=== PATIENT | female | born 1935 | race Caucasian/White ===

== ENCOUNTER 2022-04-23 10:30 | Inpatient (IN) | payer OTHER ==
[~2022-04-23] VITALS: Ht 172.7 cm; Wt 85.7 kg
[2022-04-23 10:30] VITALS: BP_SYST 135
--- NOTE | 2022-04-23 10:30 | NUR ---
PATIENT BIBA C/O SOB COUGHING, PLACE IN ROOM 1 ON DESIGN TECHNICIAN, SEEN BY EDP WITH ORDER PORTIA OUT.
--- NOTE | 2022-04-23 10:30 | NUR ---
BROUGHT IN BY [facility], PLACED IN BED #1 AND TRIAGED.REPORT GIVEN TO JUSTIN
[2022-04-23] MEDS ORDERED: methylPREDNISolone SOD SUCC/PF 62.5 MG/ML VIAL IVP ONE (10:45)
[2022-04-23] MEDS ORDERED: NACL 0.9% 1,000 ML IV ONE (10:45)
--- NOTE | 2022-04-23 11:03 | NUR ---
x-ray in progress.
[2022-04-23 11:09] LABS: BASOPHILS # (AUTO) 0.1 K/uL (0.0-0.2); BASOPHILS % (AUTO) 0.5 % (0.0-2.0); EOSINOPHILS % (AUTO) 0.2 % (0.0-4.0); HEMATOCRIT 34.4 % (36-48); HEMOGLOBIN 10.6 g/dL (12.0-16.0); LYMPHOCYTES # (AUTO) 1.2 K/uL (1.0-5.5); LYMPHOCYTES % (AUTO) 9.6 % (20.5-51.5); MEAN CORPUSCULAR HEMOGLOBIN 23 pg (27-31); MEAN CORPUSCULAR HGB CONC 31 % (32-36); MEAN CORPUSCULAR VOLUME 76 fL (79.0-98.0); MONOCYTES # (AUTO) 1.6 K/uL (0.0-1.0); MONOCYTES % (AUTO) 12.4 % (1.7-9.3); NEUTROPHILS # (AUTO) 9.7 K/uL (1.8-7.7); NEUTROPHILS % (AUTO) 77.3 % (40.0-70.0); PLATELET COUNT (AUTO) 225 K/uL (130-430); RED BLOOD CELL COUNT(AUTO) 4.53 MIL/uL (4.2-6.2); WHITE BLOOD COUNT (AUTO) 12.5 K/uL (4.8-10.8)
[2022-04-23 11:26] LABS: ANION GAP 8 (5-15); CALCIUM 8.9 mg/dL (8.4-11.0); CHLORIDE 101 mmol/L (98-107); CREATININE 0.91 mg/dL (0.55-1.30); GLUCOSE 117 mg/dL (70-99); UREA NITROGEN, BLOOD 14 mg/dL (8-21)
[2022-04-23] MEDS ORDERED: PIPERACILLIN/TAZO 3.375 GM in NS 50 ML IV ONE (11:30)
[2022-04-23] MEDS ORDERED: IPRATROPIUM BROM 0.5 MG/2.5 ML VIAL.NEB (ATROVENT) INH ONE (11:30)
[2022-04-23] MEDS ORDERED: ALBUTEROL SULFATE 0.083% 2.5 MG/3 ML VIAL.NEB INH ONE (11:30)
[2022-04-23 11:31] LABS: ALANINE AMINOTRANSFERASE 29 U/L (12-78); ALBUMIN 2.7 g/dL (3.4-4.8); ASPARTATE AMINOTRANSFERASE 24 U/L (10-37); TOTAL BILIRUBIN 0.4 mg/dL (0.0-1.0)
[2022-04-23] MEDS ORDERED: PIPERACILLIN/TAZOBACTAM 3.375 GM/VIAL (ZOSYN) IV ONE (11:37)
[2022-04-23] MEDS ORDERED: ONDANSETRON HCL 4 MG/2 ML VIAL IVP ONE (13:30)
--- NOTE | 2022-04-23 14:24 | NUR ---
NOTIFIED ED ADMITTING REGARDING DR. FLOYD' REQUEST FOR ADMISSION/TRANSFER. PER DR. FLOYD PT IS STABLE FOR TRANSFER. WILL CONTACT EDUCATION DIRECTOR REGARDING THIS MATTER. PER FACESHEET: NIKA PARSON -NIKA
[2022-04-23] MEDS ORDERED: ACETAMINOPHEN 325 MG TABLET PO PRN ×2 (14:45→15:30)
[2022-04-23] MEDS ORDERED: INSULIN LISPRO SLIDING SCALE 100 UNITS/ML, 3 ML VIAL (humaLOG) SUBCUT PRN (14:45)
[2022-04-23] MEDS ORDERED: DEXTROSE 50% JECT 50 ML DISP.SYRIN IVP PRN (14:45)
[2022-04-23] MEDS ORDERED: ONDANSETRON HCL 4 MG/2 ML VIAL IVP PRN (14:45)
[2022-04-23] MEDS ORDERED: DOCUSATE SODIUM 100 MG CAPSULE PO PRN (14:45)
[2022-04-23] MEDS ORDERED: MAGNESIUM SULFATE 50 ML IV PRN (14:45)
[2022-04-23] MEDS ORDERED: ALBUTEROL SULFATE 0.083% 2.5 MG/3 ML VIAL.NEB INH PRN (14:45)
[2022-04-23] MEDS ORDERED: MUPIROCIN 2% TOPICAL OINTMENT 22 GM NS PRN (14:45)
[2022-04-23] MEDS ORDERED: MORPHINE 2 MG/ML INJ. SYRINGE IVP PRN ×2 (14:45)
--- NOTE | 2022-04-23 15:20 | NUR ---
ADMISSION NOTE; Received patient from ER via gurney. Patient admitted with diagnosis of PNA and acute resp. failure. Patient is awake, alert, oriented X 4. Patient oriented to hospital room, call light, toileting, pain management and safety-teach back done. Patient informed that Blanka will be her nurse and that their room number is 13B. Personal belongings checked and Belongings List documented. Call light within reach.
[2022-04-23] MEDS ORDERED: DOCU-156 PO (16:05)
[2022-04-23] MEDS ORDERED: DONE5TAB33 PO (16:05)
[2022-04-23] MEDS ORDERED: ATOR10TA68 PO (16:05)
[2022-04-23] MEDS ORDERED: APIX5TAB PO (16:05)
[2022-04-23] MEDS ORDERED: ASPI-1393 PO (16:05)
[2022-04-23] MEDS ORDERED: MELA10TA3 PO (16:05)
[2022-04-23] MEDS ORDERED: NEU300 PO (16:05)
[2022-04-23] MEDS ORDERED: HYDR-3917 PO (16:05)
[2022-04-23] MEDS ORDERED: CALC-17 PO (16:05)
[2022-04-23] MEDS ORDERED: OMEP20CA15 PO (16:05)
[2022-04-23] MEDS ORDERED: VITD2000 PO (16:05)
[2022-04-23] MEDS ORDERED: MEMA5TAB42 PO (16:05)
[2022-04-23] MEDS ORDERED: FURO80TA3 PO (16:05)
[2022-04-23] MEDS ORDERED: VENL75CA56 PO (16:05)
[2022-04-23] MEDS ORDERED: ACET-2634 PO (16:06)
[2022-04-23] MEDS ORDERED: FAMO1TAB30 PO (16:06)
[2022-04-23] MEDS ORDERED: ALBU2.5V7 INH (16:06)
[2022-04-23] MEDS ORDERED: CRAN500T4 PO (16:06)
[2022-04-23] MEDS ORDERED: L. A1CAP14 PO (16:06)
[2022-04-23] MEDS ORDERED: POTA-197 PO (16:06)
[2022-04-23] MEDS ORDERED: LORA-258 PO (16:06)
--- NOTE | 2022-04-23 16:06 | NUR ---
Medication reconciliation completed with information provided by [facility]. Any prior medication reconciliation on file was reviewed and corrected.
--- NOTE | 2022-04-23 16:07 | NUR ---
Admit bed requested Patient will be admitted to care of . Admitted to TELE unit. Diagnosis YES Inpatient (Yes or No) YES Observation (Yes or No) NO Orientation concerns or request close to nursing station (Yes or No) NO Covid Status NEGATIVE On vent or bipap NO Isolation requirements NO Needs a sitter NO From Home (Yes or if No enter name of facility) HOME Requires Dialysis (Yes or No) NO Med Rec Completed (Yes of No) YES
--- NOTE | 2022-04-23 16:50 | NUR ---
REPORT GIVEN TO NICOLE ALONSO
--- NOTE | 2022-04-23 16:50 | NUR ---
Patient will be admitted to [facility]. Admitted to unit. Will go to room . Belongings list completed. Complete and up to date summary report printed. SBAR report to be given at bedside with opportunity for questions.
[2022-04-23 17:20] VITALS: BP_SYST 151
--- NOTE | 2022-04-23 19:11 | NUR ---
Closing Notes; Closing Notes; Patient laying in bed, resting while watching TV. A/O x4, Swiss speaking. Patient Breathing even and labored on 4LPM. No pain, no distress, with SOB. Patient is on a mechanical soft diet. Patient has RH 22g. Patient is bed bound and needs assistants. Bed is locked in lowest position. Call light within reach, all needs met, will endorse to cnc machinist 2nd shift nurse.
[2022-04-23] MEDS: HEPARIN SODIUM,PORCINE 5,000 UNITS/ML VIAL SUBCUT SCH (21:00)
[2022-04-24] VITALS (7 sets, daily range): BP systolic 129–147
[2022-04-24 07:16] LABS: BASOPHILS % (AUTO) 0.1 % (0.0-2.0); HEMATOCRIT 33.8 % (36-48); HEMOGLOBIN 10.5 g/dL (12.0-16.0); LYMPHOCYTES # (AUTO) 0.6 K/uL (1.0-5.5); LYMPHOCYTES % (AUTO) 5.4 % (20.5-51.5); MEAN CORPUSCULAR HEMOGLOBIN 24 pg (27-31); MEAN CORPUSCULAR HGB CONC 31 % (32-36); MEAN CORPUSCULAR VOLUME 77 fL (79.0-98.0); MONOCYTES # (AUTO) 0.8 K/uL (0.0-1.0); MONOCYTES % (AUTO) 7.6 % (1.7-9.3); NEUTROPHILS # (AUTO) 9.3 K/uL (1.8-7.7); NEUTROPHILS % (AUTO) 86.9 % (40.0-70.0); PLATELET COUNT (AUTO) 223 K/uL (130-430); RED BLOOD CELL COUNT(AUTO) 4.41 MIL/uL (4.2-6.2); RED CELL DISTRIBUTION WIDTH 19.8 % (9.0-15.0); WHITE BLOOD COUNT (AUTO) 10.6 K/uL (4.8-10.8)
--- NOTE | 2022-04-24 07:16 | NUR ---
NOTES PT IS RESTING
[2022-04-24 08:36] LABS: ANION GAP 5 (5-15); CALCIUM 9.4 mg/dL (8.4-11.0); CHLORIDE 103 mmol/L (98-107); CREATININE 0.98 mg/dL (0.55-1.30); GLUCOSE 117 mg/dL (70-99); UREA NITROGEN, BLOOD 20 mg/dL (8-21)
[2022-04-24] MEDS: HEPARIN SODIUM,PORCINE 5,000 UNITS/ML VIAL SUBCUT SCH ×2 (09:51→21:25)
[2022-04-24] MEDS: PIPERACILLIN/TAZO 3.375/DEX-IS 50 ML IV SCH ×3 (12:00→23:29)
--- NOTE | 2022-04-24 12:30 | NUR ---
Social Service re: social and political studies professor referral Met with patient and son at bedside. I completed an initial sociale service assessment with the patient at bedside. The patient is an 86-year-old female who is alert and oriented. I completed an initial assessment with the patient and son at bedside. During my assessment, the patient states she resides at [facility] in [place]. The patient requires routine assistance with her ADLs and daily care. The patient does have a Power of Independent Freight Agent, in which her son, Rodney Palacio ([phone]) holds the POA. Per patient, she does not have a PCP. Per patient and son, the discharge plan is to return back home to the [facility]. The patient states there are no anticipated discharge needs in place. The patient and son are in agreement to the discharge plan. At time of discharge, the son states the family will arrange transport privately with [facility]. [facility]: [phone] [facility]: [phone]
--- NOTE | 2022-04-24 16:31 | NUR ---
PATIENT IS A PLEASANT 86 YRS OLD, WHO DENIES ANY PAIN, HER COMPLAINTS TODAY IS FREQUENT COUGHS. MD NOTIFIED AND ORDERS OBTAINED FOR COUGH. PATIENT CONTINUES ON IV ANTIBIOTICS, NO C/O PAIN . SAFETY PRECAUTIONS MAINTAINED THIS SHIFT. CONTINUE WITH POC.
--- NOTE | 2022-04-24 20:31 | NUR ---
RECEIVED PT LYING IN BED, NO DISTRESS NOTED, DENIES PAIN. AAOX3, O2 SAT 97% ON 2L NC. NON PRODUCTIVE COUGH. LUNG SOUNDS WITH MINIMAL WHEEZING. IV TO RT SHOULDER SITE CDI. WEAK PULSES TO BLE.
[2022-04-24] MEDS ORDERED: FUROSEMIDE 80 MG TABLET PO SCH (21:00)
[2022-04-24] MEDS ORDERED: guaiFENesin ER 600 MG TAB PO SCH (21:00)
[2022-04-24] MEDS: GABAPENTIN 300 MG CAPSULE PO SCH (21:24)
[2022-04-24] MEDS: FUROSEMIDE 40 MG/4 ML VIAL IVP SCH (21:29)
[2022-04-25 01:10] VITALS: BP_SYST 139
[2022-04-25] MEDS: PIPERACILLIN/TAZO 3.375/DEX-IS 50 ML IV SCH ×3 (05:50→17:41)
[2022-04-25 07:45] VITALS: BP_SYST 103
[2022-04-25 07:46] LABS: BASOPHILS % (AUTO) 0.5 % (0.0-2.0); EOSINOPHILS % (AUTO) 0.5 % (0.0-4.0); HEMATOCRIT 32.1 % (36-48); HEMOGLOBIN 10.1 g/dL (12.0-16.0); LYMPHOCYTES # (AUTO) 1.3 K/uL (1.0-5.5); LYMPHOCYTES % (AUTO) 13.5 % (20.5-51.5); MEAN CORPUSCULAR HEMOGLOBIN 24 pg (27-31); MEAN CORPUSCULAR HGB CONC 32 % (32-36); MEAN CORPUSCULAR VOLUME 76 fL (79.0-98.0); MONOCYTES # (AUTO) 1.1 K/uL (0.0-1.0); MONOCYTES % (AUTO) 11.2 % (1.7-9.3); NEUTROPHILS % (AUTO) 74.3 % (40.0-70.0); PLATELET COUNT (AUTO) 244 K/uL (130-430); RED BLOOD CELL COUNT(AUTO) 4.21 MIL/uL (4.2-6.2); WHITE BLOOD COUNT (AUTO) 9.4 K/uL (4.8-10.8)
[2022-04-25 07:52] LABS: ANION GAP 7 (5-15); CALCIUM 8.5 mg/dL (8.4-11.0); CHLORIDE 103 mmol/L (98-107); GLUCOSE 88 mg/dL (70-99); UREA NITROGEN, BLOOD 20 mg/dL (8-21)
--- NOTE | 2022-04-25 07:59 | NUR ---
Report received from gas main fitter RN for continuity of care. Patient in stable condition. No active distress noted. Vitals stable.
[2022-04-25] MEDS: ATORVASTATIN 10 MG TABLET PO SCH (08:24)
[2022-04-25] MEDS: FUROSEMIDE 40 MG/4 ML VIAL IVP SCH ×2 (08:24→22:35)
[2022-04-25] MEDS: ASPIRIN 81 MG TABLET(ECOTRIN) PO SCH (08:24)
[2022-04-25] MEDS: HEPARIN SODIUM,PORCINE 5,000 UNITS/ML VIAL SUBCUT SCH ×2 (08:25→22:33)
[2022-04-25 12:09] VITALS: BP_SYST 125
--- NOTE | 2022-04-25 15:07 | NUR ---
RN DID NOT CLEAR PATIENT FOR PT TREATMENT PATIENT IS HAVING DIFFICULTY BREATHING. WILL FOLLOW UP ON 04/27/22
[2022-04-25 16:23] VITALS: BP_SYST 155
[2022-04-25] MEDS: POTASSIUM CHLORIDE 20 MEQ TAB.PRT.SR PO PRN (17:24)
--- NOTE | 2022-04-25 17:30 | NUR ---
NN: Patient refused fingerstick. Patient stated she's not Diabetic and made the doctor aware of it.
[2022-04-25 20:00] VITALS: BP_SYST 148
--- NOTE | 2022-04-25 20:00 | NUR ---
OPENING Patient resting in bed, 100% on 3L NC. AOx4. Cough noted. Safety precautions in place.
[2022-04-25] MEDS: GABAPENTIN 300 MG CAPSULE PO SCH (22:34)
[2022-04-26 00:45] VITALS: BP_SYST 119
[2022-04-26] MEDS: PIPERACILLIN/TAZO 3.375/DEX-IS 50 ML IV SCH ×4 (00:51→17:29)
--- NOTE | 2022-04-26 02:43 | NUR ---
On monitor, HR in high 40s-50s. Patient asymptomatic and states she feels fine. BP 148/72, HR 64, 98% on 3L NC.
[2022-04-26 07:16] LABS: ANION GAP 4 (5-15); CALCIUM 8.8 mg/dL (8.4-11.0); CHLORIDE 104 mmol/L (98-107); CREATININE 1.03 mg/dL (0.55-1.30); GLUCOSE 92 mg/dL (70-99); UREA NITROGEN, BLOOD 16 mg/dL (8-21)
--- NOTE | 2022-04-26 07:36 | NUR ---
CLOSING Patient sleeping in bed, unlabored breathing on 3L NC. Refused Accuchecks, stating she is not diabetic and doesn't want her finger poked. Antibiotics administered as ordered. Safety precautions in place. Endorsed to oncoming nurse.
[2022-04-26 07:38] LABS: BASOPHILS # (AUTO) 0.1 K/uL (0.0-0.2); BASOPHILS % (AUTO) 0.7 % (0.0-2.0); EOSINOPHILS # (AUTO) 0.1 K/uL (0.0-0.4); EOSINOPHILS % (AUTO) 1.6 % (0.0-4.0); HEMATOCRIT 33.1 % (36-48); HEMOGLOBIN 10.4 g/dL (12.0-16.0); LYMPHOCYTES # (AUTO) 1.3 K/uL (1.0-5.5); LYMPHOCYTES % (AUTO) 16.7 % (20.5-51.5); MEAN CORPUSCULAR HEMOGLOBIN 24 pg (27-31); MEAN CORPUSCULAR HGB CONC 31 % (32-36); MEAN CORPUSCULAR VOLUME 76 fL (79.0-98.0); MONOCYTES # (AUTO) 0.9 K/uL (0.0-1.0); MONOCYTES % (AUTO) 12.1 % (1.7-9.3); NEUTROPHILS # (AUTO) 5.3 K/uL (1.8-7.7); NEUTROPHILS % (AUTO) 68.9 % (40.0-70.0); PLATELET COUNT (AUTO) 245 K/uL (130-430); RED BLOOD CELL COUNT(AUTO) 4.35 MIL/uL (4.2-6.2); RED CELL DISTRIBUTION WIDTH 20.1 % (9.0-15.0); WHITE BLOOD COUNT (AUTO) 7.7 K/uL (4.8-10.8)
[2022-04-26 08:00] VITALS: BP_SYST 141
[2022-04-26] MEDS ORDERED: PIPE3.379 IV (09:32)
[2022-04-26] MEDS ORDERED: DEXTROSE IV (09:32)
[2022-04-26] MEDS ORDERED: [UNRECOGNIZED DRUG - OTHER] IV (09:32)
[2022-04-26] MEDS ORDERED: TAZOBACTAM IV (09:32)
[2022-04-26] MEDS ORDERED: PIPERACILLIN IV (09:32)
[2022-04-26] MEDS: FUROSEMIDE 40 MG/4 ML VIAL IVP SCH (09:38)
[2022-04-26] MEDS: ATORVASTATIN 10 MG TABLET PO SCH (09:39)
[2022-04-26] MEDS: ASPIRIN 81 MG TABLET(ECOTRIN) PO SCH (09:39)
[2022-04-26] MEDS: HEPARIN SODIUM,PORCINE 5,000 UNITS/ML VIAL SUBCUT SCH (09:41)
[2022-04-26 11:41] VITALS: BP_SYST 138
[2022-04-26 17:21] VITALS: BP_SYST 145
[2022-04-26 18:01] VITALS: BP_SYST 145
[2022-04-26 20:00] VITALS: BP_SYST 150
[2022-04-27] MEDS: PIPERACILLIN/TAZO 3.375/DEX-IS 50 ML IV SCH ×4 (00:15→17:13)
[2022-04-27] MEDS: GABAPENTIN 300 MG CAPSULE PO SCH ×2 (00:17→21:14)
[2022-04-27] MEDS: FUROSEMIDE 40 MG/4 ML VIAL IVP SCH ×3 (00:20→21:14)
[2022-04-27] MEDS: HEPARIN SODIUM,PORCINE 5,000 UNITS/ML VIAL SUBCUT SCH ×3 (00:20→21:13)
[2022-04-27 00:30] VITALS: BP_SYST 158
[2022-04-27 06:45] LABS: BASOPHILS # (AUTO) 0.1 K/uL (0.0-0.2); BASOPHILS % (AUTO) 0.7 % (0.0-2.0); EOSINOPHILS # (AUTO) 0.1 K/uL (0.0-0.4); EOSINOPHILS % (AUTO) 1.3 % (0.0-4.0); HEMATOCRIT 36.7 % (36-48); HEMOGLOBIN 11.4 g/dL (12.0-16.0); LYMPHOCYTES # (AUTO) 1.4 K/uL (1.0-5.5); LYMPHOCYTES % (AUTO) 17.2 % (20.5-51.5); MEAN CORPUSCULAR HEMOGLOBIN 24 pg (27-31); MEAN CORPUSCULAR HGB CONC 31 % (32-36); MEAN CORPUSCULAR VOLUME 76 fL (79.0-98.0); MONOCYTES # (AUTO) 0.8 K/uL (0.0-1.0); MONOCYTES % (AUTO) 9.8 % (1.7-9.3); NEUTROPHILS # (AUTO) 5.9 K/uL (1.8-7.7); PLATELET COUNT (AUTO) 272 K/uL (130-430); RED BLOOD CELL COUNT(AUTO) 4.84 MIL/uL (4.2-6.2); RED CELL DISTRIBUTION WIDTH 20.2 % (9.0-15.0); WHITE BLOOD COUNT (AUTO) 8.3 K/uL (4.8-10.8)
[2022-04-27 07:09] LABS: ANION GAP 5 (5-15); CALCIUM 9.2 mg/dL (8.4-11.0); CHLORIDE 101 mmol/L (98-107); CREATININE 0.99 mg/dL (0.55-1.30); GLUCOSE 93 mg/dL (70-99); UREA NITROGEN, BLOOD 14 mg/dL (8-21)
[2022-04-27 08:00] VITALS: BP_SYST 124
[2022-04-27] MEDS: ATORVASTATIN 10 MG TABLET PO SCH (08:47)
[2022-04-27] MEDS: ASPIRIN 81 MG TABLET(ECOTRIN) PO SCH (08:47)
[2022-04-27 11:24] VITALS: BP_SYST 150
--- NOTE | 2022-04-27 14:01 | NUR ---
CM faxed DC referral packet to [facility] near [place]. referral faxed to Sathya at [facility] f#[phone]. Sathya states that they can accomodate IV Zosyn q6h.
--- NOTE | 2022-04-27 15:24 | NUR ---
PHYSICAL THERAPY CO-SIGN The Physical Therapy Progress Notes documented by Duct Cleaner have been reviewed. Reviewed/Co-Signed by: Maeto So Documentation Done by:ERI RIGGS Addendum: 04/27/22 at 1524 by Mateo So PT Amended: Links added.
--- NOTE | 2022-04-27 15:38 | NUR ---
CM follow up phone call to [facility] regarding referral; left VM with CM CB #
[2022-04-27] MEDS ORDERED: LEVO-62 PO (15:48)
--- NOTE | 2022-04-27 16:05 | NUR ---
dylan left message to mackenzie ramirez's son re ischarge to call
--- NOTE | 2022-04-27 16:32 | NUR ---
Received a discharge order from MD. Pt. made aware that she will be DC today. Pt. verbalized that she doesn't want to go back to [facility] because staff doesn't speak Grenadian and they are not medical professional. Pt. is currently on O2 @ 2 LPM via NC sat @ 99-98% and without O2 pt's saturation is 92-94%. Contacted pt's son/ Sd and made him aware. Son verbalized that he will call his another brother and get back to us. CM and CN made aware.
[2022-04-27 16:50] VITALS: BP_SYST 144
[2022-04-27 20:00] VITALS: BP_SYST 167
[2022-04-27] MEDS ORDERED: ZOLPIDEM TARTRATE 5 MG TABLET PO PRN (23:30)
[2022-04-28] VITALS: BP_SYST 142
[2022-04-28] MEDS: PIPERACILLIN/TAZO 3.375/DEX-IS 50 ML IV SCH ×3 (00:01→12:32)
[2022-04-28 04:00] VITALS: BP_SYST 147
[2022-04-28 05:49] LABS: BASOPHILS # (AUTO) 0.1 K/uL (0.0-0.2); BASOPHILS % (AUTO) 0.9 % (0.0-2.0); EOSINOPHILS # (AUTO) 0.1 K/uL (0.0-0.4); EOSINOPHILS % (AUTO) 1.2 % (0.0-4.0); HEMATOCRIT 36.7 % (36-48); HEMOGLOBIN 11.6 g/dL (12.0-16.0); LYMPHOCYTES # (AUTO) 1.5 K/uL (1.0-5.5); LYMPHOCYTES % (AUTO) 21.9 % (20.5-51.5); MEAN CORPUSCULAR HEMOGLOBIN 24 pg (27-31); MEAN CORPUSCULAR HGB CONC 32 % (32-36); MEAN CORPUSCULAR VOLUME 76 fL (79.0-98.0); MONOCYTES # (AUTO) 0.7 K/uL (0.0-1.0); MONOCYTES % (AUTO) 9.9 % (1.7-9.3); NEUTROPHILS # (AUTO) 4.4 K/uL (1.8-7.7); NEUTROPHILS % (AUTO) 66.1 % (40.0-70.0); PLATELET COUNT (AUTO) 297 K/uL (130-430); RED BLOOD CELL COUNT(AUTO) 4.86 MIL/uL (4.2-6.2); RED CELL DISTRIBUTION WIDTH 19.8 % (9.0-15.0); WHITE BLOOD COUNT (AUTO) 6.7 K/uL (4.8-10.8)
[2022-04-28 06:16] LABS: ANION GAP 8 (5-15); CHLORIDE 102 mmol/L (98-107); CREATININE 0.87 mg/dL (0.55-1.30); GLUCOSE 98 mg/dL (70-99); UREA NITROGEN, BLOOD 12 mg/dL (8-21)
[2022-04-28] MEDS: FUROSEMIDE 40 MG/4 ML VIAL IVP SCH (08:38)
[2022-04-28] MEDS: ASPIRIN 81 MG TABLET(ECOTRIN) PO SCH (08:39)
[2022-04-28] MEDS: ATORVASTATIN 10 MG TABLET PO SCH (08:39)
[2022-04-28] MEDS: HEPARIN SODIUM,PORCINE 5,000 UNITS/ML VIAL SUBCUT SCH (08:40)
[2022-04-28] MEDS: POTASSIUM CHLORIDE 20 MEQ TAB.PRT.SR PO PRN (08:59)
--- NOTE | 2022-04-28 09:10 | NUR ---
DEISI reached out to [facility]& [phone] regarding pt discharge home today. Spoke with Lucie who states that pt is WC bound, has O2 and nebulizer at facility and is willing to help pt son get transportation back to the facility. DEISI called son Ike Garcia [phone];left w/CB#.
--- NOTE | 2022-04-28 10:08 | NUR ---
DEISI reached out to [employer] [phone]; spoke with Mariel who gave CM a list of insurance contracted agencies. Mariel to fax auth request form
--- NOTE | 2022-04-28 12:10 | NUR ---
CM unable to reach pt son to verify where pt will be discharged to. Per RN notes, patient does not want to go back to [facility] and [facility]. CM unable to arrange services without a verified address. Son Ike Adam called again. Left . sent a text as well to [phone]
--- NOTE | 2022-04-28 12:51 | NUR ---
DEISI learned that pt is agreeable to go back to [facility].Lucie at [facility] notified and will try to arrange transportation back. Lucie and DEISI have not been able to reach son Ike
[2022-04-28] MEDS ORDERED: LEVO-62 PO (13:43)
--- NOTE | 2022-04-28 15:20 | NUR ---
PHYSICAL THERAPY CO-SIGN The Physical Therapy Progress Notes documented by Rotary Driller have been reviewed. Reviewed/Co-Signed by: Moe Tanner Documentation Done by:ERI RIGGS Addendum: 04/28/22 at 1521 by Moe Tanner PT Amended: Links added.
[2022-04-28 16:31] VITALS: BP_SYST 142
--- NOTE | 2022-04-28 17:15 | NUR ---
D/C Patient Patient given medication reconciliation form and D/C instructions. Exit Care provided. Patient verbalized understanding. discussed with patient the results and treatment provided. [facility] Patient in stable condition, ID band removed. IV catheter removed, intact and dressing applied, no active bleeding. e Rx sent.no more IV antibiotic per dayne manager of case, Patient educated on pain management. All belongings sent with patient.
--- NOTE | 2022-04-29 09:51 | NUR ---
DEISI faxed request for auth; [employer] [facility] safety and PT to [facility]. f3 . will update [employer]. ULISES Addendum: 04/29/22 at 1012 by Jody Parsons RN urgent fax to [facility] f#[phone]
--- NOTE | 2022-04-29 14:51 | NUR ---
CM follow up phone call to [facility] [phone] for auth update; no answer.
--- NOTE | 2022-04-30 08:19 | NUR ---
CM follow up with Marissa. DEISI spoke with Jaimee who provided authorization for HH services for patient with [facility]. Auth # [id number] start 04/29/2022 to 04/29/2023 GO299 for 3. GO151 for 6. Will call [facility] to provide auth#
== END 2022-04-28 17:15 | disposition home health service (06) | DRG 871 ==
LOC: SED 10:30 → STU 14:43
PROVIDERS: ADMIT Family Medicine; ATTEND Family Medicine
DX: A41.9 Sepsis, unspecified organism (principal); J18.9 Pneumonia, unspecified organism; J96.01 Acute respiratory failure with hypoxia; I42.9 Cardiomyopathy, unspecified; I48.91 Unspecified atrial fibrillation; Z20.822 Contact with and (suspected) exposure to COVID-19; I11.0 Hypertensive heart disease with heart failure; I50.9 Heart failure, unspecified; I25.10 Atherosclerotic heart disease of native coronary artery without angina pectoris; D64.9 Anemia, unspecified; E66.9 Obesity, unspecified; Z68.28 Body mass index [BMI] 28.0-28.9, adult; Z79.01 Long term (current) use of anticoagulants; Z88.8 Allergy status to other drugs, medicaments and biological substances; Z79.899 Other long term (current) drug therapy; Z95.1 Presence of aortocoronary bypass graft
CPT/HCPCS: 36415; 36600; 71045; 80048; 80053; 82803-TC; 82962; 83605; 83735; 83880; 84484; 85025; 87040; 93005; 94760; 96361; 96365; 96375; 97110-GP; 97530-GP; 99291; G0378; J1644; J1940; J2405; J2543; J2930; J7613